=== PATIENT | female | born 1975 | race Caucasian/White ===

== ENCOUNTER 2018-04-29 13:49 | Emergency (ER) | payer BC ==
--- NOTE | 2018-04-29 14:09 | EDM.PDOC ---
ED HPI GENERAL MEDICAL PROBLEM - General Chief Complaint: Back Pain or Injury Stated Complaint: UNKNOWN Time Seen by Provider: 04/29/18 14:04 Source of Information: Reports: Patient, EMS History Limitations: Reports: No Limitations - History of Present Illness INITIAL COMMENTS - FREE TEXT/NARRATIVE: EMS arrived pt on lying on floor on side told them she bent over and felt sharp pain with "pop" and unable to get back up. was able to lower herself onto knees and rolled over on side. pt does give h/o LBP but get DC Tx. denies surgeries. EMS gave Rx so can move pt. pt states has numbness tingling to both legs. Lower Back Pain Score (Numeric/FACES): 5 - Related Data Allergies Allergy/AdvReac Type Severity Reaction Status Date / Time Penicillins Allergy Cannot Verified 04/29/18 13:50 Remember Home Meds: Home Meds . [No Known Home Meds] 04/29/18 [History] Past Medical History - Past Health History Medical/Surgical History: Denies Medical/Surgical History HEENT History: Reports: None Cardiovascular History: Reports: None Respiratory History: Reports: None Gastrointestinal History: Reports: None Genitourinary History: Reports: None FLOAT PHLEBOTOMIST History: Reports: None Musculoskeletal History: Reports: None Neurological History: Reports: None Psychiatric History: Reports: None Endocrine/Metabolic History: Reports: None Hematologic History: Reports: None Immunologic History: Reports: None Oncologic (Cancer) History: Reports: None Dermatologic History: Reports: None - Infectious Disease History Infectious Disease History: Reports: None - Past Surgical History Head Surgeries/Procedures: Reports: None Social & Family History - Family History Family Medical History: Noncontributory - Tobacco Use Smoking Status *Q: Current Every Day Smoker Years of Tobacco use: 20 Packs/Tins Daily: 1 - Caffeine Use Caffeine Use: Reports: Coffee, Soda - Alcohol Use Days Per Week of Alcohol Use: 1 Number of Drinks Per Day: 3 Total Drinks Per Week: 3 - Recreational Drug Use Recreational Drug Use: No ED ROS GENERAL - Review of Systems Review Of Systems: ROS reveals no pertinent complaints other than HPI. ED EXAM,LOWER BACK PAIN/INJURY - Physical Exam Exam: See Below (tearful) Exam Limited By: No Limitations General Appearance: Alert, WD/WN, Mild Distress, Other (pain) Ears: Hearing Grossly Normal Throat/Mouth: Normal Voice, No Airway Compromise Head: Atraumatic Neck: Non-Tender, Full Range of Motion Respiratory/Chest: No Respiratory Distress Cardiovascular: Regular Rate, Rhythm GI/Abdominal: Soft, Non-Tender Back Exam: Muscle Spasm, Paraspinal Tenderness, Other (bilat radiculopathy, L4-5 -S1 region) Neurological: Alert, Oriented x 3 Psychiatric: Tearful Skin Exam: Warm, Dry, Normal Color Lymphatic: No Adenopathy Course - Vital Signs Last Recorded V/S: Last Vital Signs Temp 36.3 C 04/29/18 13:50 Pulse 70 04/29/18 13:50 Resp 18 04/29/18 13:50 BP 121/94 H 04/29/18 13:50 Pulse Ox 100 04/29/18 13:50 - Orders/Labs/Meds Meds: Medications Discontinued Medications Generic Name Dose Route Start Last Admin Trade Name Freq PRN Reason Stop Dose Admin Hydrocodone Bitart/Acetaminophen 1 tab 04/29/18 15:41 04/29/18 15:48 [place] 325-5 Mg PO 04/29/18 15:42 1 tab ONETIME ONE Administration Cyclobenzaprine HCl 10 mg 04/29/18 15:41 04/29/18 15:47 Flexeril PO 04/29/18 15:42 10 mg ONETIME ONE Administration Ketorolac Tromethamine 30 mg 04/29/18 14:55 04/29/18 15:01 Toradol IVPUSH 04/29/18 14:56 30 mg ONETIME ONE Administration - Re-Assessments/Exams Free Text/Narrative Re-Assessment/Exam: 04/29/18 14:56 s/p fentanyl 50 now wore off, able to stand but still painful. 04/29/18 15:44 re-exam; s/p toradol much better but not 100% Departure - Departure Time of Disposition: 15:50 Disposition: Home, Self-Care 01 Condition: Good Clinical Impression: Lumbar radicular pain, Lumbar paraspinal muscle spasm - Discharge Information Instructions: Sciatica, [id number] Forms: ED Department Discharge Additional Instructions: 1) avoid bending lifting straining 2) try heat or ice to sore areas 3) see clinic tomorrow for MRI SCAN on lumbar pain rx given; flexeril 10mg tid prn spasm x 12 vicodin 5/325mg bid prn x 6
[2018-04-29] MEDS ORDERED: Ketorolac 30 MG/ML SDV IVPUSH ONE (14:55)
[2018-04-29] MEDS ORDERED: Acetaminophen/HYDROcodone 325-5 MG Tab PO ONE (15:41)
[2018-04-29] MEDS ORDERED: Cyclobenzaprine 10 MG Tab PO ONE (15:41)
== END 2018-04-29 15:53 | disposition home or self-care (01) ==
LOC: DL.ED 13:49
DX: M54.16 Radiculopathy, lumbar region (principal); M62.830 Muscle spasm of back; F17.210 Nicotine dependence, cigarettes, uncomplicated; Z88.0 Allergy status to penicillin
CPT/HCPCS: 72131; 96374; 99284; A9270; J1885

== ENCOUNTER 2022-02-09 16:32 | Emergency (ER) | payer BC ==
[2022-02-09 19:02] LABS: ANION GAP 12.9 mEq/L (7-13)
[2022-02-09] MEDS ORDERED: HYDROmorphone 0.5 MG/0.5 ML Syringe IVPUSH ONE ×2 (19:21→21:43)
[2022-02-09] MEDS ORDERED: Piperacillin/Tazobactam 3.375 GM in Sodium Chloride 0.9% 100 ML IV ONE (20:49)
== END 2022-02-10 01:20 ==
LOC: DL.ED 16:32
DX: T81.41XA Infection following a procedure, superficial incisional surgical site, initial encounter (principal); N61.0 Mastitis without abscess; Z88.0 Allergy status to penicillin; Z90.12 Acquired absence of left breast and nipple; Z90.11 Acquired absence of right breast and nipple
CPT/HCPCS: 36415; 76641; 80053; 83605; 85025; 87040; 96365; 96366; 96367; 96375; 96376; 99284; J1170; J2543; J3370; J7050

== ENCOUNTER 2023-07-11 17:45 | Emergency (ER) | payer BC, OTHER ==
[2023-07-11 19:42] LABS: APPEARANCE,URINE CLEAR (CLEAR); BILIRUBIN,URINE NEGATIVE (NEGATIVE); COLOR,URINE YELLOW (YELLOW); GLUCOSE,URINE NEGATIVE (NEGATIVE); KETONES,URINE NEGATIVE (NEGATIVE); LEUKOCYTE ESTERASE,URINE NEGATIVE (NEGATIVE); NITRITE,URINE NEGATIVE (NEGATIVE); OCCULT BLOOD,URINE NEGATIVE (NEGATIVE); PH,URINE 6.5 (5.0-9.0); PROTEIN,URINE NEGATIVE (NEGATIVE); UROBILINOGEN,URINE 0.2 mg/dL (0.2-1.0)
[2023-07-11 19:54] LABS: AMPHETAMINES,URINE NEGATIVE (NEGATIVE); BARBITURATES,URINE NEGATIVE (NEGATIVE); BENZODIAZEPINE,URINE NEGATIVE (NEGATIVE); MDMA (ECSTASY), URINE NEGATIVE (NEGATIVE); METHADONE,URINE NEGATIVE (NEGATIVE); METHAMPHETAMINES,URINE NEGATIVE (NEGATIVE); OPIATES,URINE NEGATIVE (NEGATIVE); OXYCODONE,URINE NEGATIVE (NEGATIVE); PHENCYCLIDINE,URINE NEGATIVE (NEGATIVE); TCA,URINE NEGATIVE (NEGATIVE)
[2023-07-11 20:02] LABS: BASOPHILS PERCENT AUTO 0.6 % (0.0-1.0); EOSINOPHILS PERCENT AUTO 1.9 % (1.0-3.0); HEMATOCRIT 42.3 % (37.0-47.0); HEMOGLOBIN 14.9 g/dL (12.0-16.0); LYMPHOCYTES PERCENT AUTO 20.2 % (20.5-50.1); MEAN CORPUSCULAR HEMOGLOBIN 37.9 pg (27.0-34.0); MEAN CORPUSCULAR HGB CONC 35.2 g/dL (33.0-35.0); MEAN CORPUSCULAR VOLUME 107.6 fL (80-100); MONOCYTES PERCENT AUTO 9.9 % (2-8); NEUTROPHILS PERCENT AUTO 67.4 % (42.2-75.2); PLATELET COUNT,PLT 215 10^3/uL (150-450); RED BLOOD CELL COUNT 3.93 10^6/uL (4.2-5.4); WHITE BLOOD CELL COUNT,WBC 4.8 10^3/uL (5.0-10.0)
[2023-07-11 20:24] LABS: A/G RATIO 1.2; ALBUMIN 4.6 g/dL (3.4-5.0); BILIRUBIN TOTAL 0.4 mg/dL (0.2-1.0); BUN/CREATININE RATIO 9.6 (No establ ref range); CALCIUM 8.8 mg/dL (8.5-10.1); CREATININE 0.73 mg/dL (0.55-1.02); EST CRCL DRUG DOSING (CG) 94.04 mL/min; MAGNESIUM 1.8 mg/dL (1.8-2.4); PROTEIN TOTAL,TP 8.4 g/dL (6.4-8.2)
[2023-07-11] MEDS: OLANZapine 10 MG Vial IM ONE (21:50)
== END 2023-07-11 22:00 ==
LOC: DL.ED 17:45
DX: R45.851 Suicidal ideations (principal); F10.10 Alcohol abuse, uncomplicated; Z88.0 Allergy status to penicillin; Z79.899 Other long term (current) drug therapy; Z86.19 Personal history of other infectious and parasitic diseases; Y90.7 Blood alcohol level of 200-239 mg/100 ml
CPT/HCPCS: 36415; 80053; 80143; 80179; 80305; 80307; 81003; 83735; 85025; 96372; 99285; J2405

== ENCOUNTER 2023-11-27 14:04 | Emergency (ER) | payer OTHER ==
[2023-11-27 14:29] LABS: BASOPHILS PERCENT AUTO 0.3 % (0.0-1.0); EOSINOPHILS PERCENT AUTO 0.4 % (1.0-3.0); HEMATOCRIT 41.2 % (37.0-47.0); HEMOGLOBIN 14.7 g/dL (12.0-16.0); LYMPHOCYTES PERCENT AUTO 14.5 % (20.5-50.1); MEAN CORPUSCULAR HEMOGLOBIN 36.8 pg (27.0-34.0); MEAN CORPUSCULAR HGB CONC 35.7 g/dL (33.0-35.0); NEUTROPHILS PERCENT AUTO 76.8 % (42.2-75.2); PLATELET COUNT,PLT 314 10^3/uL (150-450); WHITE BLOOD CELL COUNT,WBC 7.6 10^3/uL (5.0-10.0)
[2023-11-27] MEDS: diazePAM 5 MG/ML MDV IV ONE (14:39)
[2023-11-27] MEDS: Lactated Ringers 1,000 ML IV SCH (14:40)
[2023-11-27] MEDS: Ondansetron 4 MG/2 ML SDV IVPUSH ONE (14:43)
[2023-11-27 14:49] LABS: A/G RATIO 1.4; ALANINE AMINOTRANSFERASE,ALT 58 U/L (14-59); ALBUMIN 4.7 g/dL (3.4-5.0); ALKALINE PHOSPHATASE 98 U/L (46-116); ANION GAP 21.3 mEq/L (7-13); ASPARTATE AMNIOTRANSFERASE,AST 74 U/L (15-37); BILIRUBIN TOTAL 0.7 mg/dL (0.2-1.0); BLOOD UREA NITROGEN,BUN 5 mg/dL (7-18); BUN/CREATININE RATIO 5.2 (No establ ref range); CALCIUM 9.3 mg/dL (8.5-10.1); CARBON DIOXIDE,CO2 23 mmol/L (21-32); CHLORIDE,CL 98 mmol/L (98-107); CREATININE 0.97 mg/dL (0.55-1.02); EST CRCL DRUG DOSING (CG) 65.68 mL/min; GLUCOSE RANDOM 119 mg/dL (70-99); LIPASE 19 U/L (16-77); MAGNESIUM 1.5 mg/dL (1.8-2.4); POTASSIUM,K 3.3 mmol/L (3.5-5.1); PROTEIN TOTAL,TP 8.1 g/dL (6.4-8.2); SODIUM,NA 139 mmol/L (136-145)
[2023-11-27 14:50] LABS: ESTIMATED GFR 72 mL/min (>=60); ETHANOL BLOOD MEDICAL < 3 mg/dL (0)
[2023-11-27] MEDS: Potassium Chloride 10 MEQ Tab.ER PO ONE (15:37)
[2023-11-27] MEDS: Magnesium Sulfate/Water Premix 2 GM in Premix Bag 1 BAG IV ONE (15:38)
== END 2023-11-27 16:03 | disposition home or self-care (01) ==
LOC: DL.ED 14:04
DX: F41.9 Anxiety disorder, unspecified (principal); E87.6 Hypokalemia; E83.42 Hypomagnesemia; F10.10 Alcohol abuse, uncomplicated; I10 Essential (primary) hypertension; F17.210 Nicotine dependence, cigarettes, uncomplicated; Z86.16 Personal history of COVID-19; Z88.0 Allergy status to penicillin
CPT/HCPCS: 36415; 80053; 80307; 83690; 83735; 85025; 96361; 96365; 96375; 99284-25; A9270-GY; J3360; J3475; J7120